=== PATIENT | female | born 1970 | race Caucasian/White ===

== ENCOUNTER 2022-10-28 11:03 | Emergency (ER) | payer OTHER, SELFPAY ==
[2022-10-28 11:19] VITALS: BP 114/47; PULSE 69; RESP 18; TEMP 37.1; O2SAT 100
--- NOTE | 2022-10-28 12:34 | ED.GENADULT ---
HPI - General Adult General Chief complaint: Skin/Abscess/Foreign Body Stated complaint: Rash Time Seen by Provider: 10/28/22 12:21 Source: patient Mode of arrival: ambulatory Limitations: no limitations History of Present Illness HPI narrative: Patient presents today complaining of a one-week history of productive cough that is worse at night, congestion, rhinorrhea. She saw her PCP 5 days ago was diagnosed with a viral illness and given a prescription for Tessalon Perles. Two days ago her rash began on her trunk that is pruritic and is worse when she gets hot. Today she developed drainage from her right eye. She has been also taking some Delsym occasionally for her cough without relief. Related Data Home Medications Medication Instructions Recorded Confirmed estradiol 0.05 mg/24 hr semiweekly 10/28/22 10/28/22 transdermal patch progesterone micronized 100 mg mg 10/28/22 capsule testosterone 4 mg/24 hr 10/28/22 transdermal 24 hour patch Allergies Allergy/AdvReac Type Severity Reaction Status Date / Time No Known Allergies Allergy Verified 10/28/22 11:17 Review of Systems Review of Systems: CONSTITUTIONAL: Denies body aches, fever, chills, or sweats. EYES: Denies visual changes, redness. + right eye drainage ENT: Denies sore throat, or otalgia.+ congestion, rhinorrhea CARDIOVASCULAR: Denies chest pain, palpitations, or edema. RESPIRATORY: Denies dyspnea.+ cough GASTROINTESTINAL: Denies abdominal pain, nausea, vomiting, or diarrhea. GENITOURINARY: Denies dysuria or hematuria. SKIN: Denies itching, or wounds.+ rash MUSCULOSKELETAL: Denies back pain, joint pain, or myalgia. NEUROLOGIC: Denies headache, numbness, tingling, or weakness. PSYCH: Denies depression or anxiety. PMFSH Comments At time of signature, I have reviewed and agree with nursing past medical, surgical, social and family history unless otherwise noted. Please see nursing chart for further information. There is no relevant family history pertinent to the presenting complaint Exam Narrative: GENERAL: Well-appearing, well-nourished, and in no acute distress. HEAD: Normocephalic, atraumatic. EYES: EOMI. PERRL. Left eye normal. Right eye with injected conjunctivae and small amount of green purulence discharge in the medial canthus. Lids and lashes normal bilaterally. ENT: Mucous membranes pink and moist. Nares clear. No rhinorrhea. TMs normal bilaterally. Throat normal. Uvula midline. NECK: Normal AROM. Supple. No lymphadenopathy. CHEST: No respiratory distress. Clear to auscultation. HEART: Regular rate and rhythm. No murmur appreciated. Normal peripheral pulses. EXTREMITIES: Normal range of motion. No edema. SKIN: Warm, dry. Scattered mildly erythematous papular rash over the abdomen, chest, and back. Capillary refill normal. Normal skin turgor. NEURO: No focal deficits. Alert and oriented x3. Gait steady. PSYCH: Normal affect. No signs of depression or anxiety. Course Course Level of Care: Express Care Visit Vital Signs Vital signs: Vital Signs Temperature 98.8 F 10/28/22 11:19 Pulse Rate 69 10/28/22 11:19 Respiratory Rate 18 10/28/22 11:19 Blood Pressure 114/47 L 10/28/22 11:19 Pulse Oximetry 100 10/28/22 11:19 Oxygen Delivery Room Air 10/28/22 11:19 Temperature 98.8 F 10/28/22 11:19 Pulse Rate 69 10/28/22 11:19 Respiratory Rate 18 10/28/22 11:19 Blood Pressure 114/47 L 10/28/22 11:19 Pulse Oximetry 100 10/28/22 11:19 Oxygen Delivery Room Air 10/28/22 11:19 Reviewed Medical Decision Making Differential Diagnosis Differential Diagnosis: Conjunctivitis, contact dermatitis, viral exanthem, bronchitis, URI, pneumonia Vital Signs Vital Signs: Vital Signs Temperature 98.8 F 10/28/22 11:19 Pulse Rate 69 10/28/22 11:19 Respiratory Rate 18 10/28/22 11:19 Blood Pressure 114/47 L 10/28/22 11:19 Pulse Oximetry 100 10/28/22 11:19 Oxygen Delivery Room
== END 2022-10-28 12:49 | disposition home or self-care (01) ==
PROVIDERS: Emergency Provider Nurse Practitioner; PCP Nurse Practitioner
DX: H10.31 Unspecified acute conjunctivitis, right eye (principal); L30.9 Dermatitis, unspecified; J40 Bronchitis, not specified as acute or chronic
CPT/HCPCS: 99213; G0463

== ENCOUNTER 2024-06-19 08:17 | Outpatient (CLI) | payer OTHER, SELFPAY ==
--- NOTE | ~2024-06-19 | MM_ITS ---
EXAMINATION: MM diagnostic mammo unilat RT HISTORY: Follow-up right breast calcifications TECHNIQUE: Additional 3-D tomosynthesis images of the right breast were performed and synthetic 2-D i mages were generated. CAD analysis was submitted and interpreted. COMPARISON: 05/20/2024 BREAST PARENCHYMAL COMPOSITION: Dense: The breasts are extremely dense, which lowers the sensitivity of mammography. FINDINGS: Clustered calcifications in the upper outer quadrant of the right breast anteriorly have a relatively monomorphic appearance and are most likely benign. There are no suspicious masses or archi tectural distortion. IMPRESSION: 1. Probable benign clustered calcifications upper outer quadrant of the right breast anteriorly. 2. Recommend 6 month follow-up diagnostic right mammogram BI-RADS category 3, probably benign findings. Reviewed, dictated and finalized at location B. IMPRESSION: 1. Probable benign clustered calcifications upper outer quadrant of the right b reast anteriorly. 2. Recommend 6 month follow-up diagnostic right mammogram BI-RADS category 3, probably benign findings.
== END 2024-06-19 08:18 ==
PROVIDERS: PCP Obstetrics & Gynecology; Visit Provider Obstetrics & Gynecology
DX: R92.8 Other abnormal and inconclusive findings on diagnostic imaging of breast (principal)
CPT/HCPCS: 77065

== ENCOUNTER 2025-07-01 07:58 | Outpatient (CLI) | payer BC, SELFPAY ==
--- NOTE | ~2025-07-01 | MM_ITS ---
EXAMINATION: MM diagnostic myles BI w kaila INDICATION: 55-year old female; BI-RADS 3, follow-up probably benign calcifications upper outer right breast and screening left breast. COMPARISON: 06/19/2024 through 01/23/2023 TECHNIQUE: Digital Breast Tomosynthesis CC, MLO views were obtained of Both breasts with computer-aid ed detection to assist in interpretation of the study. In addition, digital breast magnification CC a nd MLO views of the right breast was obtained. FINDINGS: The breasts are heterogeneously dense, which may obscure small masses. The group of punctate/round microcalcifications that spans 0.4 cm seen in the upper outer at anterior depth RIGHT breast which correlates to the area of concern appears more prominent on the current exa mination. No new focal dominant mass, architectural distortion or suspicious microcalcifications identified. IMPRESSION: 1. Indeterminate RIGHT breast group of microcalcifications in the upper outer quadrant. Biopsy is re commended. 2. No mammographic evidence of malignancy in the left breast. RECOMMENDATION: Stereotactic biopsy of RIGHT breast indeterminate calcifications. BI-RADS 4, SUSPICIOUS Reviewed, dictated and finalized at location B. IMPRESSION: 1. Indeterminate RIGHT breast group of microcalcifications in the upper outer quadrant. Biopsy is recommended. 2. No mammographic evidence of malignancy in the left breast. RECOMMENDATION: Stereotactic biopsy of RIGHT breast indeterminate calcifications. BI-RADS 4, SUSPICIOUS
--- OUTSIDE RECORDS SUMMARY | 2025-07-01 08:04 | XMS_ITS | Clinical Summary ---
Author Organization [facility] Address [address] [place] [address] Care Team Providers Care Manager Aerospace Name Role Phone Garcia Lauren Murguia STITCHING MACHINE OPERATOR Primary Care Provider [phone] Allergies No known active allergies Medications progesterone 100 MG capsule TAKE 1 CAPSULE BY MOUTH EVERYDAY AT BEDTIME 12/01/2020 Active estradiol 0.05 MG/24HR patch APPLY 1 PATCH TWICE WEEKLY 02/26/2021 Active Zinc Sulfate (ZINC 15 OR) Take 1 tablet by mouth daily. Active Cholecalciferol (VITAMIN D-3) 25 MCG (1000 UT) Cap Take 1 tablet by mouth daily. Active Active Problems Problem Noted Date Diagnosed Date Somatic dysfunction of sacral region 07/05/2014 Overview (04/29/2019): Date Onset: 07/05/2014 Resolved Problems Problem Noted Date Diagnosed Date Resolved Date Encounter for screening colonoscopy 12/15/2024 12/21/2024 Encounter for screening colonoscopy 12/15/2024 01/04/2025 Encounter for screening colonoscopy 12/15/2024 01/18/2025 Encounter for screening colonoscopy 12/15/2024 02/01/2025 Family History Medical History Relation Comments Cardiomyopathy Mother Breast Cancer Paternal Aunt 1 UNSURE OF AGE Breast Cancer Paternal Aunt 2 UNSURE OF AGE Relation Status Comments Father Alive Mother Alive Paternal Aunt 1 Alive Paternal Aunt 2 Alive Social History Tobacco Use Types Packs/Day Years Used Date Smoking Tobacco: Never Smokeless Tobacco: Never Tobacco Cessation:Counseling Given: No Alcohol Use Standard Drinks/Week Comments Yes 0 (1 standard drink = 0.6 oz pur e alcohol) rare PHQ-2 Answer Date Recorded Patient Health Questionnaire-2 Score 0 11/03/2022 Comments No Sex and Gender Information Value Date Recorded Sex Assigned at Female 01/27/2025 1:16 PM ETYMOLOGY TEACHER Legal Sex Female 8:06 PM CDT Gender Identity Female 01/22/2022 4:47 AM ETYMOLOGY TEACHER Sexual Orientation Straight 01/22/2022 4: 47 AM ETYMOLOGY TEACHER Last Filed Vital Signs Vital Sign Reading Time Taken Comments Blood Pressure 100/58 02/01/2025 12:15 PM CDT Pulse 51 02/01/2025 11:44 AM CDT Temperature 36.6 C (97.9 F) 02/01/2025 11:44 AM CDT Respiratory Rate 18 02/01/2025 12:15 PM CDT Oxygen Saturation 98% 02/01/2025 11:44 AM CDT Inhaled Oxygen Concentration - - Weight 63.5 kg (140 lb) 02/01/2025 9:55 AM CDT Height 162.6 cm (5' 4) 02/01/2025 9:55 AM CDT Body Mass Index 24.03 02/01/2025 9:55 AM CDT Plan of Treatment Health Maintenance Due Date Last Done Comments Cervical Cancer Screening Pap Smear (Age 30 to 64) Every 3 Years 1971 Annual Physical 1974 Hepatitis C 1989 DTaP, Tdap and Td Vaccines (1 - Tdap) 1990 Hepatitis B Vaccines (1 of 3 - 19+ 3-dose series) 1990 Cervical Cancer Screening Pap with HPV Testing (Age 30 to 64) Every 5 Years 2001 Cervical Cancer Screening with HPV 2001 Pneumococcal Vaccine: 50+ Years (1 of 1 - PCV) 2021 Zoster Vaccines (1 of 2) 2021 COVID-19 Vaccine (1 - 2023- season) 2024 PHQ-2 (Physician [place]) 11/25/2024 Mammogram Screening 05/20/2026 05/20/2024, 01/23/2023, 01/22/2022, Additional history exists Colorectal Cancer Screening Colonoscopy (10 Years) 02/01/2035 02/01/2025, 02/01/2025, 02/01/2025 Meningococcal B Vaccine Aged Out No l onger eligible based on patient's age to complete this topic Meningococcal Vaccine Aged Out No jeremiah landon eligible based on patient's age to complete this topic RSV Immunizations Under 20 Months Aged Out No longer eligible based on patient's age to complete this topic Procedures Procedure Name Priority Date/Time Associated Diagnosis Comments COLONOSCOPY Routine 02/01/2025 9:49 AM CDT MG SCREENING W MILEY JOE DIGI Routine 05/20/2024 10:43 AM CDT Encounter for screening mammogram for malignant neoplasm of breast from Last 3 Months or Most Recently Relevant to Health Maintenance Results * MG SCREENING W MILEY JOE DIGI (05/20/2024 10:43 AM CDT) Anatomical Region Laterality Modality Breast Bilateral Mammography 05/20/2024 2:15 PM CDT Impressions 05/20/2024 2:26 PM CDT ===== IMPRESSION: ===== 1. Additional imaging of the right breast Assessment: ACR BI-RADS 0 - INCOMPLETE: NEEDS ADDITIONAL IMAGING EVALUATION Recommendation: 1:Additional Imaging Right Comments: Ordered By: VU CLEMENS Interpreted By: Sydnee Talley, 05/20/2024 2:15 PM Narrative 05/20/2024 2:26 PM CDT EXAMINATION: Digital bilateral screening mammogram with 3-D tomosynthesis EXAM DATE/TIME: 05/20/2024 10:30 AM REASON FOR EXAM: YEARLY Paternal aunt diagnosed breast carcinoma at uncertain ages. COMPARISON: 01/22/2022.. 01/23/2023 Technique: Digital screening mammography of both breasts was performed in addition to 3-D Tomosynthesis technique. This study was read with the assistance of a computer-aided detection system. Tissue density: The breast tissue is heterogeneously dense, which may obscure small masses. Findings: Microcalcifications in the upper outer aspect of the right breast in its anterior portion. Spot compression magnification images will be needed. No dominant mass. No architectural distortion. No skin thickening or nipple retraction. Axillary regions are within normal limits. Vu Clemens MD MAMMO Final Resul t from Last 3 Months or Most Recently Relevant to Health Maintenance Insurance Care Teams Manager Aerospace Relationship Specialty Start Date End Date Lauren Garcia FNP [address] [place] [address] [place] [address] PCP - General Nurse Practitioner Family 07/05/23
--- OUTSIDE RECORDS SUMMARY | 2025-07-01 08:04 | XMS_ITS | Encounter Summary ---
Author Organization [facility] Address [facility] [place] [address] Care Team Providers Care Supervisor Stitching Department Name Role Phone Lauren Garcia Primary Care Provider [phone] None, Provider Primary Care Provider Lauren Purdy Primary Care Provider [phone] Encounter Details Date Type Department Care Team (Late Contact Info) Description 02/15/2021 MyChart Message Enc [facility] [address] [place], [place] [id number] [place], [facility] Provider RE:Appointment Request: Annual Physical Social History Tobacco Use Types Packs/Day Years Used Date Smoking Tobacco: Never Smokeless Tobacco: Never Comments Unknown Sex and Gender Information Value Date Recorded Sex Assigned at Female 01/27/2025 1:16 PM CUPOLA TAPPER HELPER Legal Sex Female 8:06 PM CDT Gender Identity Female 01/22/2022 4:47 AM CUPOLA TAPPER HELPER Sexual Orientation Straight 01/22/2022 4: 47 AM CUPOLA TAPPER HELPER COVID-19 Exposure Response Date Recorded In the last month, have you been in contact with someone who was confirmed or suspected to have Coronavirus / COVID-19? No / Unsure 01/17/2021 3:22 PM CUPOLA TAPPER HELPER documented as of this encounter Plan of Treatment Not on file documented as of this encounter Visit Diagnoses Not on filedocumented in this encounter Additional Health Concerns Infection Onset Date Last Indicated Resolved Time COVID-19 Rule Out 10/24/2022 10/24/2022 10/24/2022 8:42 PM CUPOLA TAPPER HELPER documented as of this encounter Care Teams Supervisor Stitching Department Relationship Specialty Start Date End Date Lauren Garcia FNP [address] [place] [address] PCP - General Nurse Practitioner Family 04/27/19 None, Provider, PCP - General UNKNOWN PHYSICIAN SPECIALTY 10/23/22 07/04/23 Lauren Garcia FNP [address] [facility] [place] [address] PCP - General Nurse Practitioner Family 07/05/23 documented as of this encounter
--- OUTSIDE RECORDS SUMMARY | 2025-07-01 08:04 | XMS_ITS | Clinical Summary ---
Author Organization [facility] Address [id number] [place] [address] [place] [address] Care Team Providers Care Diesel Tractor Operator Name Role Phone Magda Thurston MD Primary Care Provider Allergies No known active allergies Medications Multivitamin Capsule Take 1 Tablet by mouth. Active estradioL 0.05 mg/24 hr patch APPLY 1 PATCH TWICE WEEKLY 1 Active levothyroxine 50 mcg tablet TAKE 1 TABLET BY MOUTH EVERY DAY 1 Active progesterone micronized (PROMETRIUM) 100 mg Capsule TAKE 1 CAPSULE BY MOUTH EVERYDAY AT BEDTIME 1 Active testosterone 10 mg/mL topical cream compound Apply 2 mg to affected area see administration instructions. Active Active Problems No known active problems Social History Tobacco Use Types Packs/Day Years Used Date Smoking Tobacco: Never Smokeless Tobacco: Never Alcohol Use Standard Drinks/Week Comments Yes 0 (1 standard drink = 0.6 oz pur e alcohol) occ Comments Unknown Sex and Gender Information Value Date Recorded Sex Assigned at Not on file Legal Sex Female 8:29 AM CDT Gender Identity Not on file Sexual Orientation Not on file Last Filed Vital Signs Vital Sign Reading Time Taken Comments Blood Pressure 119/47 02/19/2021 11:55 AM CDT Pulse 57 02/19/2021 11:55 AM CDT Temperature 36.8 C (98.2 F) 02/19/2021 11:55 AM CDT Respiratory Rate - - Oxygen Saturation 98% 02/19/2021 11:55 AM CDT Inhaled Oxygen Concentration - - Weight 59 kg (130 lb) 02/19/2021 11:55 AM CDT Height 162.6 cm (5' 4) 02/19/2021 11:55 AM CDT Body Mass Index 22.31 02/19/2021 11:55 AM CDT Plan of Treatment Health Maintenance Due Date Last Done Comments DTAP/TDAP/TD VACCINES (1 - Tdap) 1990 HEPATITIS B VACCINES (1 of 3 - 19+ 3-dose series) 03/1990 HPV/Cotest (21-29) 1992 CERVICAL CANCER SCREENING 2001 HPV/Cotest (30-65) 2001 PAP SMEAR 2001 COLORECTAL SCREENING 2016 Colorectal Cancer Screening 2016 FIT-DNA Q 3 years 2016 FIT/FOBT Q 1 year 2016 Flex Sig/CT Colonography Q 5 years 2016 ZOSTER VACCINE (1 of 2) 2021 BREAST CANCER SCREENING 01/17/2022 01/17/2021 INFLUENZA VACCINE (#1) 2025 Insurance Care Teams Diesel Tractor Operator Relationship Specialty Start Date End Date Allison-Magda Ramirez MD [address] [place] [id number] PCP - General 02/19/21
== END 2025-07-01 07:59 | disposition home or self-care (01) ==
PROVIDERS: PCP Obstetrics & Gynecology; Visit Provider Obstetrics & Gynecology
DX: R92.8 Other abnormal and inconclusive findings on diagnostic imaging of breast (principal)
CPT/HCPCS: 77062; 77066; G0279